=== PATIENT | female | born 1980 | race Caucasian/White ===

== ENCOUNTER 2020-10-12 04:48 | Inpatient (IN) | payer OTHER ==
[2020-10-09 10:11] VITALS: BMI 32.1
[2020-10-12] MEDS ORDERED: ceFAZolin SODIUM 1 GM VIAL ONE ×2 (09:20→17:12)
[2020-10-12 09:51] LABS: HEMATOCRIT 40.2 % (32.4-45.2); HEMOGLOBIN 13.8 GM/dL (10.7-15.3); MCH 29.2 pg (25.7-33.7); MCHC 34.3 g/dl (32.0-36.0); MEAN CELL VOLUME 85.1 fl (80-96); MEAN PLT VOLUME 8.6 fl (7.5-11.1); PLATELET COUNT 214 K/MM3 (134-434); RBC 4.73 M/mm3 (3.60-5.2); WHITE BLOOD COUNT 7.3 K/mm3 (4.0-10.0)
[2020-10-12 09:54] LABS: EPI CELLS 15 /uL (0-25.1); HYALINE CASTS 0 /uL (0-3.1); URINE APPEARANCE CLEAR; URINE BACTERIA 745 /uL (0-1359); URINE BILIRUBIN NEGATIVE (NEGATIVE); URINE COLOR YELLOW; URINE GLUCOSE (UA) NEGATIVE (NEGATIVE); URINE KETONE NEGATIVE (NEGATIVE); URINE LEUK ESTERASE 1+ (NEGATIVE); URINE NITRITE NEGATIVE (NEGATIVE); URINE PROTEIN NEGATIVE (NEGATIVE); URINE RBC 24 /uL (0-23.9); URINE UROBILINOGEN 0.2 mg/dL (0.2-1.0); URINE WBC 50 /uL (0-25.8)
[2020-10-12 09:58] LABS: INR 1.06 (0.83-1.09)
[2020-10-12] MEDS ORDERED: CEFAZOLIN 2 GM in DEXTROSE 5%-WATER - 100 ML IVPB ONE (10:00)
[2020-10-12 10:11] LABS: CALCIUM 9.2 mg/dL (8.5-10.1)
[2020-10-12 10:12] LABS: ALBUMIN 3.9 g/dl (3.4-5.0); BLOOD UREA NITROGEN 10.2 mg/dL (7-18)
[2020-10-12 10:15] LABS: CREATININE 0.8 mg/dL (0.55-1.3)
[2020-10-12 10:16] LABS: BILIRUBIN,TOTAL 0.4 mg/dL (0.2-1)
[2020-10-12 10:17] LABS: TOT PROT 7.2 g/dl (6.4-8.2)
[2020-10-12 10:25] LABS: HCG,QUALITATIVE URINE Negative
[2020-10-12 10:26] LABS: POTASSIUM 4.1 mmol/L (3.5-5.1)
[2020-10-12] MEDS ORDERED: MIDAZOLAM HCL 2 MG/2 ML SINGLE DOSE VIAL ONE ×2 (11:01)
[2020-10-12] MEDS ORDERED: VASOPRESSIN 20 UNITS/ML VIAL IV ONE (11:24)
[2020-10-12] MEDS ORDERED: ROCURONIUM BROMIDE 100 MG/10 ML VIAL ONE (11:37)
[2020-10-12] MEDS ORDERED: LIDOCAINE HCL/PF 2% SDV 5ML VIAL ONE (11:37)
[2020-10-12] MEDS ORDERED: fentaNYL CITRATE 250 MCG/5 ML VIAL ONE (11:37)
[2020-10-12] MEDS ORDERED: PROPOFOL 20 ML ONE (11:37)
[2020-10-12] MEDS ORDERED: ceFAZolin SODIUM 1 GM VIAL IVPB ONE (12:05)
[2020-10-12] MEDS ORDERED: GLYCOPYRROLATE 0.2 MG/1 ML VIAL ONE (12:55)
[2020-10-12] MEDS ORDERED: NEOSTIGMINE METHYLSULFATE 0.5 MG/ML - 10 ML MDV ONE (12:56)
[2020-10-12] MEDS ORDERED: IBUPROFEN 800 MG/8 ML IJ IVPB PRN (13:44)
[2020-10-12] MEDS ORDERED: ONDANSETRON 4 MG/2 ML VIAL IVPUSH PRN ×2 (13:44→13:45)
[2020-10-12] MEDS ORDERED: oxyCODONE HCL 5 MG TABLET PO PRN (13:45)
[2020-10-12] MEDS ORDERED: LACTATED RINGERS SOLUTION 1,000 ML IV SCH (13:45)
[2020-10-12] MEDS ORDERED: DOCUSATE SODIUM 100 MG CAPSULE (FP) PO PRN (13:45)
[2020-10-12] MEDS ORDERED: ACETAMINOPHEN 325 MG TABLET (FP) PO PRN (13:45)
[2020-10-12] MEDS: IBUPROFEN 800 MG/8 ML IJ IVPB PRN ×2 (14:00→19:41)
[2020-10-12] MEDS ORDERED: IBUPROFEN 800 MG/8 ML IJ IVPB ONE (14:10)
[2020-10-12] MEDS ORDERED: CEFAZOLIN 1 GM in DEXTROSE 5%-WATER - 1 GM/50 ML IVPB IVPB SCH (18:00)
[2020-10-13] MEDS: CEFAZOLIN 1 GM/D5W 1 GM/50 ML BAG IVPB SCH ×2 (01:54→09:06)
[2020-10-13 08:43] LABS: MEAN PLT VOLUME 8.9 fl (7.5-11.1)
[2020-10-13 08:46] LABS: HEMATOCRIT 35.9 % (32.4-45.2); HEMOGLOBIN 12.3 GM/dL (10.7-15.3); MCH 29.3 pg (25.7-33.7); MCHC 34.2 g/dl (32.0-36.0); MEAN CELL VOLUME 85.7 fl (80-96); PLATELET COUNT 213 K/MM3 (134-434); RBC 4.19 M/mm3 (3.60-5.2); WHITE BLOOD COUNT 10.8 K/mm3 (4.0-10.0)
[2020-10-13 08:57] LABS: POTASSIUM 4.1 mmol/L (3.5-5.1)
[2020-10-13 09:03] LABS: CREATININE 0.7 mg/dL (0.55-1.3)
[2020-10-13] MEDS: ENOXAPARIN NA (PORCINE) 40 MG/0.4 ML DISP.SYRIN SQ SCH (09:06)
[2020-10-13] MEDS: IBUPROFEN 800 MG/8 ML IJ IVPB SCH ×3 (09:15→21:07)
[2020-10-13] MEDS ORDERED: ceFAZolin SODIUM 1 GM VIAL ONE (09:41)
[2020-10-13] MEDS ORDERED: MIDAZOLAM HCL 2 MG/2 ML SINGLE DOSE VIAL ONE ×2 (09:41)
[2020-10-13] MEDS ORDERED: ROCURONIUM BROMIDE 100 MG/10 ML VIAL ONE ×2 (09:41→11:19)
[2020-10-13] MEDS ORDERED: PROPOFOL 20 ML ONE (09:41)
[2020-10-13] MEDS ORDERED: fentaNYL CITRATE 250 MCG/5 ML VIAL ONE (09:41)
[2020-10-13] MEDS ORDERED: methylPREDNISolone NA SUCC 125 MG/2 ML VIAL ONE (10:24)
[2020-10-13] MEDS ORDERED: ONDANSETRON 4 MG/2 ML VIAL ONE (10:52)
[2020-10-13] MEDS ORDERED: DEXAMETHASONE SOD PHOSPHATE 4 MG/1 ML VIAL ONE (10:52)
[2020-10-13] MEDS ORDERED: GLYCOPYRROLATE 0.2 MG/1 ML VIAL ONE (11:47)
[2020-10-13] MEDS ORDERED: NEOSTIGMINE METHYLSULFATE 0.5 MG/ML - 10 ML MDV ONE (11:47)
[2020-10-13] MEDS: ACETAMINOPHEN 500 MG TABLET (FP) PO SCH ×2 (12:40→18:21)
[2020-10-14] MEDS: ACETAMINOPHEN 500 MG TABLET (FP) PO SCH ×2 (01:17→06:15)
[2020-10-14] MEDS ORDERED: IBUPROFEN 600 MG TABLET (FP) PO PRN (04:30)
[2020-10-14 09:15] VITALS: BP 133/72; PULSE 69; TEMP 97.7
[2020-10-14] MEDS: ENOXAPARIN NA (PORCINE) 40 MG/0.4 ML DISP.SYRIN SQ SCH (09:45)
[2020-10-14] MEDS ORDERED: ACETAMINOPHEN 500 MG TABLET (FP) PO PRN (13:00)
== END 2020-10-14 12:45 | disposition home or self-care (01) | DRG 743 ==
LOC: J2C 04:48 → EDSTATUS 07:30 → J3W 17:55
PROVIDERS: ADMIT Obstetrics & Gynecology; ATTEND Obstetrics & Gynecology
PROC: 0UB90ZZ Excision of Uterus, Open Approach (ICD-10-PCS; principal; 2020-10-12 11:30)
DX: D25.1 Intramural leiomyoma of uterus (principal); D25.2 Subserosal leiomyoma of uterus; N92.0 Excessive and frequent menstruation with regular cycle
CPT/HCPCS: 36415; 80048; 80053; 81003; 84703; 85027; 85610; 85730; 86850; 86900; 86901; 86922; 88305-TC; 88307-TC; 88331-TC; 94760